=== PATIENT | male | born 1980 | race Caucasian/White ===

== ENCOUNTER 2018-02-09 19:59 | Emergency (ER) | payer BC ==
[~2018-02-09] VITALS: Ht 175.3 cm; Wt 110.6 kg
[2018-02-09 21:10] LABS: BASOPHIL (%) 0.2 % (0-1); EOSINOPHIL (%) 2.3 % (0-5); EOSINOPHIL COUNT 0.2 K/uL (0-0.3); HEMATOCRIT 43.6 % (38.0-50.0); HEMOGLOBIN 15.6 G/DL (12.5-16.6); IMMATURE GRANULOCYTE (%) 0.2 % (0.0-0.7); MCH 30.5 PG (29.0-34.0); MCHC 35.8 G/DL (30.0-36.0); MCV 85.2 FL (86-99); MONOCYTE (%) 9.9 % (3-12); MONOCYTE COUNT 0.8 K/uL (0-0.8); NEUTROPHIL (%) 51.4 % (45-76); NEUTROPHIL COUNT 4.2 K/uL (1.8-6.4); PLATELET COUNT 310 K/uL (156-360); RBC DIS.WIDTH-CV 11.6 % (11.8-14.6); RED BLOOD COUNT 5.12 M/uL (4.00-5.50); WHITE BLOOD COUNT 8.2 K/uL (4.1-10.2)
[2018-02-09 21:18] LABS: CHLORIDE 104 mEq/L (99-109); POTASSIUM 4.1 mEq/L (3.7-5.4); SODIUM 140 mEq/L (136-147)
[2018-02-09 21:20] LABS: GLUCOSE 84 mg/dL (70-99)
[2018-02-09 21:24] LABS: GFR ESTIMATE (CALCULATED) > 59 mL/min/ (58.99-99999); UREA NITROGEN (BUN) 18 mg/dL (9-23)
[2018-02-09] MEDS ORDERED: IMITREX6 MG/0.5 M SC (23:33)
[2018-02-09] MEDS ORDERED: REGLAN10 MG PO (23:33)
[2018-02-09] MEDS ORDERED: IMITREX20 MG NS (23:33)
[2018-02-09 23:46] VITALS: BP 160/95
== END 2018-02-09 23:47 | disposition home or self-care (01) ==
LOC: EXP 19:59 → EME 19:59 → EXP 23:47
PROVIDERS: Physician Assistant
DX: G44.009 Cluster headache syndrome, unspecified, not intractable (principal); I10 Essential (primary) hypertension
CPT/HCPCS: 70450; 80048; 85025; 99281; 99284